=== PATIENT | female | born 1970 | race Caucasian/White ===

== ENCOUNTER 2016-06-26 16:17 | Emergency (ER) | payer BC ==
[~2016-06-26 16:17] MED LIST: FLEXERIL10 MG PO; GLUCOPHAGE500 MG; LEVOXYL125 MCG; NASONEX17 GM; NORCO 5/325 TAB1 TAB PO; T3; TRIAMTERENE W/H1 CAP; YAZ 28 TABLET1 TAB
[2016-06-26] MEDS ORDERED: ADIPEX-P37.5 M3 PO (17:00)
[2016-06-26] MEDS ORDERED: SPIRIVA RESPIMAT4 G1 INH (17:00)
[2016-06-26] MEDS ORDERED: SYNTHROID112 MC1 PO (17:01)
[2016-06-26] MEDS ORDERED: PROAIR HFA8.5 GM INH (17:01)
[2016-06-26] MEDS ORDERED: EPIPEN 2-P0.3 MG/0.3 IM (17:01)
[2016-06-26] MEDS ORDERED: [UNRECOGNIZED DRUG - OTHER] PO (17:25)
[2016-06-26] MEDS ORDERED: NASONEX17 G1 (17:25)
[2016-06-26] MEDS ORDERED: LORATADINE D PO (17:26)
[2016-06-26 17:40] LABS: BASO % 0.7 % (0-2); BASO ABSOLUTE COUNT 0.1 tho/cmm (0.0-0.2); EOS % 9.4 % (0-7); EOSINOPHIL ABSOLUTE COUNT 0.7 tho/cmm (0.0-0.7); HCT-HEMATOCRIT 39.1 % (34.0-49.0); HGB-HEMOGLOBIN 13.6 gm/dl (12.0-15.5); IMMATURE GRANULOCYTES ABSOLUTE 0.01 tho/cmm (0-0.03); IMMATURE GRANULOCYTES PERCENT 0.1 % (0-0.3); LYMPH % 34.2 % (20-45); LYMPH ABSOLUTE COUNT 2.5 tho/cmm (0.8-4.5); MCHC MEAN CORPUSCULAR HGB CONC 34.8 % (32.0-36.0); MCV (MEAN CELL VOLUME) 89.1 fl (82.0-96.0); MONO % 6.5 % (0-12); MONOCYTE ABSOLUTE COUNT 0.5 tho/cmm (0.0-1.2); NEUTROPHIL ABSOLUTE COUNT 3.6 tho/cmm (1.6-8.0); NEUTROPHIL-AUTOMATED 3.6 tho/cmm (1.6-8.0); NEUTROPHILS % 49.1 % (40-80); PLATELET COUNT 255 tho/cmm (150-450); RED BLOOD COUNT 4.39 mil/cmm (4.00-5.20); RED CELL DISTRIBUTION WIDTH 12.7 % (12.4-16.4); WHITE BLOOD COUNT 7.3 tho/cmm (4.0-10.0)
[2016-06-26 17:56] LABS: ANION GAP 12 mmol/L (0-20); BLOOD UREA NITROGEN 10 mg/dl (6-24); CALCIUM 8.9 mg/dl (8.5-10.5); CARBON DIOXIDE-VENOUS 25 mmol/L (22-32); CHLORIDE 107 mmol/l (96-110); CREATININE 0.73 mg/dl (0.50-1.10); GLUCOSE 83 mg/dL (70-110); SODIUM 140 mmol/L (135-145); eGFR VALUE FOR BLACK >90 mL/Min
[2016-06-26] MEDS ORDERED: CEFDINIR300 M1 PO (18:28)
== END 2016-06-26 18:37 ==
LOC: EDMED 16:17
PROVIDERS: Emergency Medicine
DX: R06.02 Shortness of breath (principal); R06.2 Wheezing; E11.9 Type 2 diabetes mellitus without complications; E03.9 Hypothyroidism, unspecified